=== PATIENT | male | born 1945 | race Caucasian/White ===

== ENCOUNTER → 2017-03-29 | Outpatient (CLI) | payer MEDICARE, OTHER ==
[~2017-03-29] MED LIST: BENADRYL25 M1 PO; DEXILANT30 MG PO; FLOMAX 0.40.4 MG/CAP PO; FLOMAX0.4 MG PO; PEPCID 20MG TAB20 MG PO; PREVACID 30MG30 M1 PO; PREVACID24HROTC PO; PROSCAR 5MG5 MG PO; PROSCAR PO; TUMS500 MG PO; VIMPAT100 MG PO
== END ==
LOC: COL.RAD 08:05
DX: M25.552 Pain in left hip (principal)
CPT/HCPCS: J3301; Q9967

== ENCOUNTER → 2017-11-04 | Outpatient (CLI) | payer MEDICARE, OTHER | LOC: COL.RAD 13:37 | DX: M25.552 Pain in left hip (principal) | CPT/HCPCS: J3301; Q9967 ==

== ENCOUNTER → 2018-11-15 | Outpatient (CLI) | payer MEDICARE, OTHER | LOC: COL.RAD 15:48 | DX: M85.612 Other cyst of bone, left shoulder (principal) ==

== ENCOUNTER → 2019-01-22 | Outpatient (CLI) | payer MEDICARE, OTHER | LOC: COL.RAD 08:01 | DX: M16.12 Unilateral primary osteoarthritis, left hip (principal) | CPT/HCPCS: J3301; Q9967 ==

== ENCOUNTER → 2019-04-12 | Outpatient (CLI) | payer MEDICARE, OTHER | LOC: ZCOL.LAB 14:55 | DX: M79.609 Pain in unspecified limb (principal) ==

== ENCOUNTER → 2019-08-13 | Outpatient (CLI) | payer MEDICARE, OTHER | LOC: COL.RAD 07:23 | DX: M16.12 Unilateral primary osteoarthritis, left hip (principal) | CPT/HCPCS: J3301; Q9967 ==

== ENCOUNTER → 2019-11-01 | Outpatient (CLI) | payer MEDICARE, OTHER | LOC: COL.RAD 08:43 | DX: M16.12 Unilateral primary osteoarthritis, left hip (principal) | CPT/HCPCS: J3301; Q9967 ==

== ENCOUNTER → 2020-04-28 | Outpatient (CLI) | payer MEDICARE, OTHER | LOC: COL.RAD 09:49 | DX: M16.12 Unilateral primary osteoarthritis, left hip (principal) | CPT/HCPCS: J3301; Q9967 ==

== ENCOUNTER → 2020-07-18 | Outpatient (CLI) | payer MEDICARE, OTHER | LOC: COL.LAB 10:06 | DX: Z20.828 Contact with and (suspected) exposure to other viral communicable diseases (principal) ==

== ENCOUNTER → 2021-02-09 | Outpatient (CLI) | payer MEDICARE, OTHER | LOC: COL.RAD 13:15 | DX: M25.552 Pain in left hip (principal) | CPT/HCPCS: J3301; Q9967 ==

== ENCOUNTER → 2021-05-21 | Outpatient (CLI) | payer MEDICARE, OTHER | LOC: COL.RAD 10:15 | DX: M16.12 Unilateral primary osteoarthritis, left hip (principal) | CPT/HCPCS: J3301; Q9967 ==

== ENCOUNTER 2022-02-25 07:18 | Emergency (ER) | payer MEDICARE ==
[~2022-02-25] VITALS: Ht 177.8 cm; Wt 73.6 kg
[2022-02-25 07:50] LABS: BASO % 0.5 % (0.0-2.0); EOS # 0.2 K/mm3 (0.0-0.7); EOS % 2.6 % (0.0-4.0); GRAN # 5.3 K/mm3 (1.4-6.5); HEMATOCRIT 40.5 % (42.0-52.0); HEMOGLOBIN 14.3 g/dl (13.5-18.0); LYMPH # 1.9 K/mm3 (1.2-3.4); LYMPH % 22.2 % (20.0-51.0); MEAN CELL VOLUME 91 fl (80.0-100.0); MEAN CORPUSCULAR HEMOGLOBIN 32 pg (27-31); MEAN CORPUSCULAR HGB CONC 35 g/dl (33.0-37.0); MEAN PLATELET VOLUME 10.7 fl (7.4-10.4); MONO # 0.9 K/mm3 (0.1-0.6); MONO % 10.5 % (1.7-9.3); PLATELET COUNT 226 K/mm3 (130-400); RED BLOOD COUNT 4.46 M/mm3 (4.20-5.60); REDCELL DISTRIBUTION WIDTH-CV 14.2 % (11.5-14.5)
[2022-02-25 08:02] LABS: INR 1.1 (0.8-3.0)
[2022-02-25 08:08] LABS: ALBUMIN 3.5 gm/dL (3.4-4.8); BILIRUBIN,TOTAL 0.6 mg/dL (0.2-1.2); C-REACTIVE PROTEIN 0.21 mg/dL (0.00-0.50); CALCIUM 9.4 mg/dL (8.4-10.2); CREATININE, serum 1.07 mg/dL (0.72-1.25); TOTAL PROTEIN 6.8 gm/dL (6.2-8.1)
[2022-02-25 10:14] VITALS: BP 137/79; PULSE 50; TEMP 98.2
== END 2022-02-25 10:14 | disposition short-term general hospital (02) ==
LOC: COL.ER 07:18
PROVIDERS: Family Medicine
DX: I62.00 Nontraumatic subdural hemorrhage, unspecified (principal)
CPT/HCPCS: A9575; J7120

== ENCOUNTER → 2022-03-18 | Outpatient (CLI) | payer MEDICARE ==
[~2022-03-18] MED LIST changes: +COLACE 100100 MG/CAP PO; +HEPARIN SOD5000 U/ML SQ; +KEPPRA 500MG500 MG PO; +ROXICODONE 55 MG/TAB PO; +SENOKOT S 50 MG1 TAB PO; +SINGULAIR 110 MG/TAB PO; +TYLENOL 325MG325 MG PO
== END ==
LOC: COL.RAD 11:01
DX: S06.5X9A Traumatic subdural hemorrhage with loss of consciousness of unspecified duration, initial encounter (principal)

== ENCOUNTER 2022-03-24 11:45 | Inpatient (IN) | payer MEDICARE ==
[~2022-03-24] VITALS: Ht 177.8 cm; Wt 68.2 kg
[~2022-03-24 11:45] MED LIST changes: -COLACE 100100 MG/CAP PO; -HEPARIN SOD5000 U/ML SQ; -KEPPRA 500MG500 MG PO; -ROXICODONE 55 MG/TAB PO; -SENOKOT S 50 MG1 TAB PO; -SINGULAIR 110 MG/TAB PO; -TYLENOL 325MG325 MG PO
[2022-03-24] MEDS ORDERED: HEPARIN SOD5000 U/ML SQ (13:43)
[2022-03-24] MEDS ORDERED: KEPPRA 500MG500 MG PO (13:44)
[2022-03-24] MEDS ORDERED: SENOKOT S 50 MG1 TAB PO (13:45)
[2022-03-24] MEDS ORDERED: TYLENOL 325MG325 MG PO (13:46)
[2022-03-24] MEDS ORDERED: COLACE 100100 MG/CAP PO (13:48)
[2022-03-24] MEDS ORDERED: SINGULAIR 110 MG/TAB PO (13:49)
[2022-03-24] MEDS ORDERED: ROXICODONE 55 MG/TAB PO (13:49)
--- NOTE | 2022-03-24 15:30 | NUR ---
Admission assessment completed, alert/oriented, vital signs stable, patient arrived to room 336 around this time, he was tranported her from [facility] by his / private vehilce, he denies pain or discomfort at this time, I have reviewed his meds/pharmacy/allergies and updated in the system, I have notified of his arrival to [facility], heart RRR, lungs CTA, patient has large right parietal/frontal incision that is closed with anjelica, present at bedside, they deny needs at this time , call light in reach
[2022-03-24 18:03] VITALS: BP 128/72; PULSE 57; TEMP 97.5
--- NOTE | 2022-03-24 19:12 | NUR ---
PT SITTING IN RECLINER. FLAT AFFECT. HERE. VERY SUPPORTIVE. CHAIR ALRM SET. CALL LIGHT IN REACH.
--- NOTE | 2022-03-24 19:29 | NUR ---
PT CONFUSED. PT THINKS HE IS GOING HOME WITH TERESA. ASKED FOR HELP TO THE ENTRANCE. ATTEMPTED TO REORIENT. UNABLE. PT CALM AND COOPERATIVE AT THIS TIME. CALL IGHT IN REACH. CHAIR ALARM SET.
--- NOTE | 2022-03-24 20:27 | NUR ---
PT IMPULSIVELY GETTING UP FROM RECLINER. CHAIR ALARM SOUNDING. PT ABLE TO AMB TO SURGICAL NURSING DESK ANS ESCORTED BACK TO ROOM. PT RELATES HIS IS PICKING HIM UP AT THE ENTRANCE. KNOWS HE IS AT [facility]. REVIEWED PLAN OF CARE WITH PT. CALL LIGHT INREACH. CHAIR ALARM SET.
--- NOTE | 2022-03-24 20:35 | NUR ---
PT CALLED AT HOME TO ASK WHEN SHE IS COMING TONIGHT. SHE REVIEWED PLAN OF CARE WITH HIM AND PT RELATED OK. ASSISTED PT TO SINK TO BRUSH TEETH. AND GET READY FOR BED.
--- NOTE | 2022-03-24 21:01 | NUR ---
PT RESTING IN BED. BED ALARM SET. CALL IGHT IN REACH. DENIES NEEDS AT THIS TIME.
--- NOTE | 2022-03-25 00:24 | NUR ---
PT RESTING QUIETLY NOW.
--- NOTE | 2022-03-25 02:17 | NUR ---
PT HAS NOT USED CALL LIGHT TONIGHT BEFORE GETTING UP TO BR. CALM AND COOPERATIVE.
[2022-03-25 05:41] VITALS: BP 109/51; PULSE 100; TEMP 98.7
--- NOTE | 2022-03-25 06:13 | NUR ---
PT CONTINUES SLEEPING AT THIS TIME.
--- NOTE | 2022-03-25 10:25 | NUR ---
Initial visit attempt; Patient resting, Telephone Instrument Supervisor left card letting patient know of the availability of Spiritual Care at [facility].
--- NOTE | 2022-03-25 13:57 | NUR ---
HEATH and SW student met with the patient to complete intake, as the patient is new to [facility]. The patient lives in [place] with his , Lucila (ph#[phone]). He reports independence with ADLs before hospitalization and has a walking stick. The patient's PCP is Dr. Didier Dixon and he receives his medications from [facility]. The patient's DPOA-HC is in EMR and it designates his . The alternate is his son, Cordell (ph#[phone]). Cordell lives in [place] and is a physician with radiology at [employer]. The patient states that therapy has gone well so far. He had no questions or concerns for SW at this time.
--- NOTE | 2022-03-25 14:30 | NUR ---
PT RESTING QUIETLY IN BED WITH HIS EYES CLOSED. BED ALARM IS ON. CALL LIGHT WITHIN REACH. PT'S SPOUSE HAS BEEN HERE TO VISIT TODAY. PT HAS BEEN CONFUSED THROUGHOUT DAY, STATES THAT HE DOES NOT KNOW WHERE HE IS WHEN ASKED. DOES NOT USE CALL LIGHT APPROPRIATELY ET IS IMPULSIVE, LEAVES BED ON HIS OWN. PT HAD STATED THIS MORNING THAT HE HAD A MILD HEADACHE WHERE INCISION IS ON HIS HEAD, TYLENOL ADMINISTERED.
--- NOTE | 2022-03-25 15:09 | NUR ---
PT ARRIVES BACK TO ROOM AFTER WORKING WITH PHYSICAL THERAPY DOWNSTAIRS.
[2022-03-25 17:52] VITALS: BP 121/57; PULSE 63; TEMP 98
--- NOTE | 2022-03-25 19:54 | NUR ---
PT MORE ALERT AND ORIENTED TONIGHT. AT BEDSIDE. PT DENEIS PAIN. STILL FORGETS TO USE CALL LIGHT. HAS SL UNSTEADY GAIT WITH AMB TO BR. PT DENIES NEEDS AT THIS TIME. CALL LIGHT IN REACH. BED ALARM SET.
--- NOTE | 2022-03-26 05:23 | NUR ---
PT HAS HAD AN UNEVENTFUL NIGHT. FORGOT TO USE CALL LIGHT BEFORE GETTING UP TO BR X3. NO FURTHER C/O MENJIVAR.
[2022-03-26 05:30] VITALS: BP 108/49; PULSE 51; TEMP 98.1
[2022-03-26 07:33] LABS: CALCIUM 8.9 mg/dL (8.4-10.2); CREATININE, serum 0.89 mg/dL (0.72-1.25); POTASSIUM 4.4 mmol/L (3.5-4.5)
--- NOTE | 2022-03-26 08:00 | NUR ---
Patient set off the bed alarm and was already in the bathroom when the nurse came in. Nurse instructed the patient to call and wait for nursing staff for assistance. Patient A&Ox4. VSS. Denies pain and discomfort. Ankit to head CDI. Call light within reach. Bed alarm on
[2022-03-26 17:17] VITALS: BP 117/66; PULSE 63; TEMP 98.3
--- NOTE | 2022-03-26 17:20 | NUR ---
Patient sitting up in bed eating dinner, at the bedside. Patient A&Ox3 with intermittent confusion. Nursing staff reorienting as needed. Patient impulsive and has set off bed alarm to walk to the bathroom independently. Nursing staff instructing the patient to call for assistance with ambulation for patient safety. Call light within reach. Bed alarm on
[2022-03-27 06:04] VITALS: BP 116/64; PULSE 56; TEMP 98
--- NOTE | 2022-03-27 06:08 | NUR ---
no pain reported this shift, colace given @ HS for reported constipation. alert and oriented, called for assistance most of the time, but did set bed alarm off x2 getting up to use restroom.
--- NOTE | 2022-03-27 06:50 | NUR ---
Shift report received from senior it project manager RN. Pt. sleeping in left side lying position in bed. Call light is within his reach
--- NOTE | 2022-03-27 15:16 | NUR ---
Pt. resting in bed. Has completed his therapy for the day. HOB elevated approx 30 degrees. He denies pain or discomfort. Denies further needs. Bed alarm is on. Call light is within his reach
[2022-03-27 17:06] VITALS: BP 137/80; PULSE 59; TEMP 97.3
--- NOTE | 2022-03-27 19:08 | NUR ---
RECEIVED CHANGE OF SHIFT REPORT FROM DAY SHIFT RN. PATIENT HAS BEEN UP IN ROOM DESPITE EXIT ALARMS IN USE WHEN IN BED OR UP IN CHAIR. PATIENT REMINDED OF SAFTEY PRECAUTIONS AND THAT PT WOULD NEED TO EVALUATE HIM.
--- NOTE | 2022-03-27 20:40 | NUR ---
REQUESTED AND GIVEN TYLENOL FOR BACK TO HEAD/NECK DISCOMFORT AT THIS TIME.
--- NOTE | 2022-03-27 21:47 | NUR ---
PATIENT UP, SETTING OFF EXIT BED ALARM, PATIENT HAD BEEN REMINDED TO CALL STAFF WHEN OUT OF BED. PATIENT STATED HE NEEDED TO GET HIS OWN TUMS MEDS, HAS BEEN TAKING THEM PER SELF. STATES HE WANTS TO TAKE HIS OWN TUMS FROM HOME. INFORMED HOSPITALIST OF PATIENT'S REQUEST TO USE OWN HOME TUMS, OKAY GIVEN FOR PATIENT TO KEEP OWN TUMS AT BEDSIDE FOR USE PRN.
[2022-03-28 05:57] VITALS: BP 113/58; PULSE 53; TEMP 97.8
--- NOTE | 2022-03-28 07:12 | NUR ---
Shift report received from third shift lieutenant RN. Pt. resting in right side lying position. Call light is within his reach. Bed alarm is on
--- NOTE | 2022-03-28 07:14 | NUR ---
Change of shift report given to day shift RNRodney.
--- NOTE | 2022-03-28 08:56 | NUR ---
Pt. resting in bed with eyes closed. Has completed his breakfast. Sutures and anjelica to right scalp incision are CDI and SOFTWARE DEVELOPMENT ENGINEER. He denies pain or discomfort. Bed alarm is on. Call light is within his reach
--- NOTE | 2022-03-28 14:21 | NUR ---
Pt. requesting help to "go for a walk". Pt. ambulated with gait belt around Surgical/IPR unit with CGA. attended the walk.
[2022-03-28 17:13] VITALS: BP 112/61; PULSE 54; TEMP 98
--- NOTE | 2022-03-28 19:38 | NUR ---
RECEIVED CHANGE OF SHIFT REPORT FROM DAY SHIFT RN. PATIENT RESTING IN BED WITH EXIT ALARM ON AND CALL LIGHT WITHIN REACH.
--- NOTE | 2022-03-29 01:05 | NUR ---
PATIENT CONTINUES TO BE UP IN THE NIGHT, SETTING OFF BED EXIT ALARM. CONTINUE TO REMIND PATIENT TO CALL STAFF BEFORE GETTING OUT OF BED, PATIENT VERBALIZES UNDERSTANDING. NO OTHER NEEDS OR CONCERNS REPORTED.
[2022-03-29 05:34] VITALS: BP 114/63; PULSE 60; TEMP 97.8
--- NOTE | 2022-03-29 07:01 | NUR ---
CHANGE OF SHIFT REPORT GIVEN TO DAY SHIFT RNMAYCO.
[2022-03-29 07:29] LABS: CALCIUM 9.1 mg/dL (8.4-10.2); CREATININE, serum 1.01 mg/dL (0.72-1.25); MAGNESIUM 1.9 mg/dL (1.6-2.6); POTASSIUM 4.5 mmol/L (3.5-4.5)
--- NOTE | 2022-03-29 09:14 | NUR ---
PT OUT WITH THERAPY THIS AM. AMBULATING WITH STEADY GAIT. PT REPORTS USING STAIR STEP FOR 20 MIN THIS AM. AM MEDS GIVEN ORDERED. SURGICAL WOUND TO RIGHT SCALP CDI, CLOSED WITH CHLOÉ. PT EATING AND DRINKING APPROPRIATE. PT DENIES NEEDS.
--- NOTE | 2022-03-29 10:11 | NUR ---
THERAPY HAS MADE PT INDEPENDENT IN ROOM.
--- NOTE | 2022-03-29 14:27 | NUR ---
Admission QIM scores were reviewed by the team. Code of 4 chosen for oral hygiene was determined by team discussion to be the most usual performance for this patient during the assessment period. Code of 4 chosen for toilet hygiene was determined by team discussion to be the most usual performance for this patient during the assessment period. Code of 4 chosen for toileting transfers was determined by team discussion to be the most usual performance for this patient during the assessment period. Code of 4 chosen for rolling left to right was determined by team discussion to be the most usual performance before interventions for this patient during the assessment period. Code of 4 chosen for sit to lying was determined by team discussion to be the most usual performance before interventions for this patient during the assessment period. Code of 4 chosen for lying to sitting on side of bed was determined by team discussion to be the most usual performance for this patient during the assessment period. Code of 3 for sit to stand was determined by team discussion to be the most usual performance for this patient during the assessment period.--Risa Avendano, PD
--- NOTE | 2022-03-29 15:47 | NUR ---
SW checked in with patient in the morning. No needs adressed. IPR director updated me at the 1400 physician meeting that the patient will dc tomorrow and will need PT/OT/St established. Attempt made to meet with patient who was napping. Will discuss in the morning.
[2022-03-29 17:25] VITALS: BP 116/58; PULSE 56; TEMP 98.2
--- NOTE | 2022-03-29 18:58 | NUR ---
RECEIVED CHANGE OF SHIFT REPORT FROM DAY SHIFT RN.
--- NOTE | 2022-03-29 19:17 | NUR ---
DENIES ANY NEEDS AT THIS TIME. RESTING IN BED. PATIENT UP IN ROOM INDEPENDENTLY. CALL LIGHT WITHIN REACH. REQUESTED AND GIVEN TYLENOL FOR INCISIONAL R SCALP PAIN.
[2022-03-30 06:04] VITALS: BP 124/61; PULSE 64; TEMP 97.5
--- NOTE | 2022-03-30 07:25 | NUR ---
CHANGE OF SHIFT REPORT GIVEN TO DAY SHIFT RNLIZ.
--- NOTE | 2022-03-30 08:50 | NUR ---
PT SITTING UP IN BED ON ROOM AIR EATING BREAKFAST. PT IS COMPLAINING OF A HEADACHE THIS MORNING AND REQUESTING TYLENOL. MEDICATION WAS GIVEN PER REQUEST. PT STATES NO OTHER NEEDS OR COMPLAINTS AT THIS TIME. CHLOÉ AND SUTURES IN RIGHT SCALP ARE DRY AND INTACT. PT STATES HE IS READY TO GO HOME TODAY AND "EXCITED TO GET OUT OF HERE." CALL LIGHT IS WITHIN REACH.
[2022-03-30] MEDS ORDERED: TYLENOL 325MG325 MG PO (09:58)
[2022-03-30] MEDS ORDERED: KEPPRA 500MG500 MG PO (10:02)
--- NOTE | 2022-03-30 12:48 | NUR ---
plant worker met with patient to discuss that the recommendations from the team are for him to discharge with PT,OT and ST. Patient verbalizes " i don't really feel like i need speech". Patient went on to state that he has already started physical therapy at [facility] on [address] and would like to continue his physical therapt there. Notified IPR director and physician. Physician states he is needs to round on the patient and that he will speak with the patient. [facility]. Faxed clinical information and orders to [phone]. They will call the patient to schedule an appointment time. Phone call made to [facility] on [facility] to notify them that the patient will need OT and speech services. Patients clinical information and orders faxed over to them. They will call the patients for scheduling. Brian HADIER notified of the above. Discharge plan: Home with OP PT at [facility] and OT/ST through [facility]
== END 2022-03-30 12:30 | disposition home or self-care (01) | DRG 949 ==
PROVIDERS: Internal Medicine; ADMIT Physical Medicine & Rehabilitation Sports Medicine
DX: Z48.811 Encounter for surgical aftercare following surgery on the nervous system (principal); E87.0 Hyperosmolality and hypernatremia; R26.89 Other abnormalities of gait and mobility; N40.1 Benign prostatic hyperplasia with lower urinary tract symptoms; R33.8 Other retention of urine; K21.9 Gastro-esophageal reflux disease without esophagitis; J30.1 Allergic rhinitis due to pollen; D64.89 Other specified anemias; Z90.5 Acquired absence of kidney; Z73.6 Limitation of activities due to disability; Z79.891 Long term (current) use of opiate analgesic; Z79.899 Other long term (current) drug therapy; K59.00 Constipation, unspecified; R41.89 Other symptoms and signs involving cognitive functions and awareness
CPT/HCPCS: 99222; 99231-AI; 99232-AI; A9284; J1644

== ENCOUNTER 2022-04-12 15:15 | Outpatient (RCR) | payer MEDICARE ==
[~2022-04-12 15:15] MED LIST changes: +COLACE 100100 MG/CAP PO; +HEPARIN SOD5000 U/ML SQ; +KEPPRA 500MG500 MG PO; +ROXICODONE 55 MG/TAB PO; +SENOKOT S 50 MG1 TAB PO; +SINGULAIR 110 MG/TAB PO; +TYLENOL 325MG325 MG PO
== END 2022-04-20 | disposition home or self-care (01) ==
LOC: WSST
DX: I69.198 Other sequelae of nontraumatic intracerebral hemorrhage (principal); R48.9 Unspecified symbolic dysfunctions; R41.3 Other amnesia

== ENCOUNTER 2022-04-20 13:58 | Emergency (ER) | payer MEDICARE ==
[~2022-04-20] VITALS: Ht 177.8 cm; Wt 69.1 kg
[2022-04-20 14:11] VITALS: TEMP 98
[2022-04-20 14:28] LABS: BASO # 0.1 K/mm3 (0.0-0.2); BASO % 0.5 % (0.0-2.0); EOS # 0.1 K/mm3 (0.0-0.7); GRAN # 7.3 K/mm3 (1.4-6.5); GRAN % 73.6 % (42.2-75.2); HEMATOCRIT 41.7 % (42.0-52.0); HEMOGLOBIN 14.1 g/dl (13.5-18.0); LYMPH # 1.3 K/mm3 (1.2-3.4); MEAN CELL VOLUME 93 fl (80.0-100.0); MEAN CORPUSCULAR HEMOGLOBIN 32 pg (27-31); MEAN CORPUSCULAR HGB CONC 34 g/dl (33.0-37.0); MEAN PLATELET VOLUME 10.9 fl (7.4-10.4); MONO # 1.2 K/mm3 (0.1-0.6); MONO % 11.6 % (1.7-9.3); PLATELET COUNT 181 K/mm3 (130-400); RED BLOOD COUNT 4.48 M/mm3 (4.20-5.60); REDCELL DISTRIBUTION WIDTH-CV 14.3 % (11.5-14.5)
[2022-04-20 14:44] LABS: ALANINE AMINOTRANSFERASE 13 U/L (0-55); ALBUMIN 3.6 gm/dL (3.4-4.8); ALKALINE PHOSPHATASE 105 U/L (40-150); ANION GAP 12 mmol/L (7-16); AST,SGOT 12 U/L (5-34); BILIRUBIN,TOTAL 0.4 mg/dL (0.2-1.2); BLOOD UREA NITROGEN 16 mg/dL (8-26); CALCIUM 9.4 mg/dL (8.4-10.2); CARBON DIOXIDE 23 mmol/L (23-31); CHLORIDE 103 mmol/L (98-107); CREATININE, serum 1.21 mg/dL (0.72-1.25); GLUCOSE 110 mg/dL (70-99); POTASSIUM 4.5 mmol/L (3.5-4.5); SODIUM 138 mmol/L (136-145); TOTAL PROTEIN 7.5 gm/dL (6.2-8.1)
[2022-04-20 15:09] LABS: TROPONIN-I < 0.010 ng/mL (0.00-0.033)
[2022-04-20 16:01] LABS: COLLECTION METHOD CLEAN CATCH
[2022-04-20 16:09] LABS: MUCOUS Present (NOT PRESENT); PH 6 (5-8); SQUAMOUS EPITHELIAL 0-2 /hpf (0-10); URINE APPEARANCE Clear (CLEAR/HAZY); URINE BACTERIA None Seen /hpf (NONE SEEN); URINE BILIRUBIN Negative (NEGATIVE); URINE BLOOD 1+ (NEGATIVE); URINE COLOR Yellow (YELLOW); URINE GLUCOSE Negative (NEGATIVE); URINE KETONE Trace (NEGATIVE); URINE LEUKOCYTE ESTERASE Negative (NEGATIVE); URINE NITRATE Negative (NEGATIVE); URINE PROTEIN(semi-quant) Negative (NEGATIVE); URINE UROBILINOGEN Negative (NEGATIVE)
[2022-04-20 18:20] VITALS: BP 102/74; PULSE 88
== END 2022-04-20 18:21 | disposition short-term general hospital (02) ==
LOC: COL.ER 13:58
PROVIDERS: Emergency Medicine
DX: R41.82 Altered mental status, unspecified (principal); Z20.822 Contact with and (suspected) exposure to COVID-19
CPT/HCPCS: J2060

== ENCOUNTER 2022-04-21 09:26 | Outpatient (RCR) | payer MEDICARE ==
[2022-04-28] MEDS ORDERED: ROCEPHIN 2GM VIAL21 IJ (16:08)
[2022-04-28] MEDS ORDERED: DEPAKOTE ER 50500 MG PO (16:09)
[2022-04-28] MEDS ORDERED: TYLENOL 325MG325 MG PO (16:09)
[2022-04-28] MEDS ORDERED: ROXICODONE 55 MG/TAB PO (16:10)
[2022-04-28] MEDS ORDERED: ROBAXIN 75750 MG/TAB PO (16:11)
[2022-04-28] MEDS ORDERED: DULCOLAX STOOL100 MG PO (16:12)
[2022-04-28] MEDS ORDERED: TUMS500 MG PO (16:12)
[2022-04-28] MEDS ORDERED: PEPCID AC 10MG10 MG PO (16:14)
[2022-04-28] MEDS ORDERED: FLONASEALLERGY INH (16:16)
[2022-04-28] MEDS ORDERED: HEPARIN SOD5000 U/ML IJ (16:17)
[2022-04-28] MEDS ORDERED: HEPARIN SOD5000 U/ML SQ (16:18)
[2022-04-28] MEDS ORDERED: NAPHAZOLINE OP (16:19)
[2022-04-28] MEDS ORDERED: PHENIRAMINE OP (16:19)
[2022-04-28] MEDS ORDERED: SENOKOT S 50 MG1 TAB PO (16:19)
[2022-04-28] MEDS ORDERED: FLOMAX 0.40.4 MG/CAP PO (16:20)
[2022-05-04] MEDS ORDERED: ROCEPHIN 2GM VIAL21 IV (10:49)
== END 2022-05-20 ==
LOC: WSST
DX: Z79.899 Other long term (current) drug therapy (principal)

== ENCOUNTER 2022-04-28 14:32 | Inpatient (IN) | payer MEDICARE ==
[~2022-04-28] VITALS: Ht 177.8 cm; Wt 71.5 kg
[2022-04-28] MEDS ORDERED: ROCEPHIN 2GM VIAL21 IJ (16:08)
[2022-04-28] MEDS ORDERED: DEPAKOTE ER 50500 MG PO (16:09)
[2022-04-28] MEDS ORDERED: TYLENOL 325MG325 MG PO (16:09)
[2022-04-28] MEDS ORDERED: ROXICODONE 55 MG/TAB PO (16:10)
[2022-04-28] MEDS ORDERED: ROBAXIN 75750 MG/TAB PO (16:11)
[2022-04-28] MEDS ORDERED: DULCOLAX STOOL100 MG PO (16:12)
[2022-04-28] MEDS ORDERED: TUMS500 MG PO (16:12)
[2022-04-28] MEDS ORDERED: PEPCID AC 10MG10 MG PO (16:14)
[2022-04-28] MEDS ORDERED: FLONASEALLERGY INH (16:16)
[2022-04-28] MEDS ORDERED: HEPARIN SOD5000 U/ML IJ (16:17)
[2022-04-28] MEDS ORDERED: HEPARIN SOD5000 U/ML SQ (16:18)
[2022-04-28] MEDS ORDERED: NAPHAZOLINE OP (16:19)
[2022-04-28] MEDS ORDERED: SENOKOT S 50 MG1 TAB PO (16:19)
[2022-04-28] MEDS ORDERED: PHENIRAMINE OP (16:19)
[2022-04-28] MEDS ORDERED: FLOMAX 0.40.4 MG/CAP PO (16:20)
--- NOTE | 2022-04-28 18:27 | NUR ---
Pt. arrived to unit via wheelchair accompanied by and son. Orientation provided to room/unit. Pt. denies pain or discomfort. Pt. is currently eating dinner. Call light is within his reach
[2022-04-28 19:55] VITALS: BP 115/60; PULSE 61; TEMP 98.1
--- NOTE | 2022-04-28 20:18 | NUR ---
Patient is resting in bed, alert and oriented x 4, VSS. Complains of feeling cold, blankets provided and temp of bedroom increased. Assessment intake completed.
[2022-04-29 05:47] VITALS: BP 99/52; PULSE 66; TEMP 97.9
--- NOTE | 2022-04-29 06:00 | NUR ---
Patient able to ambulate without assistance. Bed alarm on but he ignores it and just go to the restroom without calling for help. No other issues along the night. Report will be given to day RN.
--- NOTE | 2022-04-29 13:27 | NUR ---
Initial visit; Nice visit with classmate; Dr. Dyson. Patient spoke of his family and what they are doing and where and then spoke of our mutual friends and classmates. Patient states that he sees some improvement in his health and was receptive to Shipwright Supervisor keeping him in her prayers.
--- NOTE | 2022-04-29 14:47 | NUR ---
patient has appt with dr peter (infectious disease) on 05/28 at 9:30.
--- NOTE | 2022-04-29 15:49 | NUR ---
Appeals Examiner met with patient to complete initial intake as he is new to [facility]. Patient lives in [place] with his , Lucila Patel" (ph#[phone]) and sees Dr. Dixon for primary care. Patient obtains medications from [facility] with no difficulties. Patient does not normally use any DME but has a walking stick that he takes with him when he does on walks. Patient reports he is normally independent with ADLS. Patient has Advance Directives which designate his Sylvia and his four sons: Pillo, Tino, Augustin, and George. SW will continue to follow for discharge needs.
[2022-04-29 17:10] VITALS: BP 128/62; PULSE 54; TEMP 98.1
--- NOTE | 2022-04-29 21:00 | NUR ---
PT RESTING IN BED. TEXTING WITH GRANDSON. DENIES PAIN. A&OX4. NO DISTRESS. CALL LIGHT IN REACH. BED ALARM SET.
[2022-04-30 05:10] VITALS: BP 134/72; PULSE 54; TEMP 98.3
--- NOTE | 2022-04-30 05:35 | NUR ---
PT SLEEPING. NO DISTRESS. QUIET UNEVENTFUL NIGHT.
[2022-04-30 06:29] LABS: BASO # 0.1 K/mm3 (0.0-0.2); BASO % 0.9 % (0.0-2.0); EOS # 0.3 K/mm3 (0.0-0.7); EOS % 3.9 % (0.0-4.0); GRAN # 3.5 K/mm3 (1.4-6.5); GRAN % 51.2 % (42.2-75.2); LYMPH # 2.1 K/mm3 (1.2-3.4); MEAN CELL VOLUME 92 fl (80.0-100.0); MEAN CORPUSCULAR HEMOGLOBIN 32 pg (27-31); MEAN CORPUSCULAR HGB CONC 34 g/dl (33.0-37.0); MEAN PLATELET VOLUME 10.8 fl (7.4-10.4); MONO # 0.9 K/mm3 (0.1-0.6); MONO % 12.8 % (1.7-9.3); PLATELET COUNT 358 K/mm3 (130-400); RED BLOOD COUNT 3.48 M/mm3 (4.20-5.60); REDCELL DISTRIBUTION WIDTH-CV 14.5 % (11.5-14.5)
[2022-04-30 06:58] LABS: ALBUMIN 2.7 gm/dL (3.4-4.8); BILIRUBIN,TOTAL 0.2 mg/dL (0.2-1.2); CALCIUM 8.9 mg/dL (8.4-10.2); CREATININE, serum 0.86 mg/dL (0.72-1.25); TOTAL PROTEIN 5.9 gm/dL (6.2-8.1)
--- NOTE | 2022-04-30 15:04 | NUR ---
The IPR Team would like to set up a patient/family meeting for next week. HEATH contacted the patient's , Sylvia, to schedule the meeting. The patient/family meeting was scheduled for next Tuesday, 05/04, at 1000. Sylvia plans to be here in person for the meeting. HEATH notified IPR Director.
[2022-04-30 17:22] VITALS: BP 131/72; PULSE 52; TEMP 97.8
--- NOTE | 2022-04-30 20:28 | NUR ---
ASSISTED PT TO BR. STEADY BUT WEAK GAIT. TO SINK BRUSHED TEETH HIMSELF. RETURNED TO BED. LIFTED LEGS INTO BED. CALL LIGHT IN REACH. BED ALARM SET.
--- NOTE | 2022-05-01 04:38 | NUR ---
PT IMPULSIVE TONIGHT. GETTING UP TO BR WITHOUT USING CALL LIGHT.
[2022-05-01 05:53] VITALS: BP 131/63; PULSE 52; TEMP 98.7
--- NOTE | 2022-05-01 10:53 | NUR ---
Follow-up visit attempt; Patient out of room, Insecticide Supervisor left card offering God's blessings and notice that Insecticide Supervisor had attempted to see him again today and wish him well.
[2022-05-01 17:29] VITALS: BP 131/63; PULSE 59; TEMP 98
--- NOTE | 2022-05-01 19:38 | NUR ---
PT ASSISTED TO WC TO GO TO [address] DURING TORNADO WARNING. NO DISTRESS.
--- NOTE | 2022-05-02 00:57 | NUR ---
PT IMPULSIVE SEVERAL TIMES TONIGHT. ENC PT TO USE CALL LIGHT.
[2022-05-02 05:18] VITALS: BP 111/55; PULSE 51; TEMP 97.8
--- NOTE | 2022-05-02 08:30 | NUR ---
Assessment complete. Pt resting in bed. A&Ox4. Follows commands. Incision to right side of head CDI with anjelica in place. Pt denies pain or other concerns at this time. Call light in reach and bed alarm on.
[2022-05-02 18:00] VITALS: BP 141/46; PULSE 58; TEMP 98.6
--- NOTE | 2022-05-02 18:15 | NUR ---
Pt had good day. Up walking in halls several times today with . No c/o pain. Denies needs.
--- NOTE | 2022-05-02 19:04 | NUR ---
PT RESTING IN BED. NO NEEDS AT THIS TIME/ CALL LIGHT IN REACH. BED ALARM SET.
--- NOTE | 2022-05-02 20:00 | NUR ---
PT RESTING IN BED. NO COMPLAINTS. GOOD CONVERSATION ABOUT WORKING AT [employer]. HAS SL SLOW THOUGHT PROCESS. REMINDED TO USE CALL LIGHT TONIGHT WHEN NEEDING UP. PT AGREED. CALL LIGHT IN REACH. BED ALARM SET.
[2022-05-03 06:39] VITALS: BP 111/57; PULSE 56; TEMP 97.8
--- NOTE | 2022-05-03 08:37 | NUR ---
ASSESSMENT COMPLETED. THE PATIENT DENIES ANY PAIN AT THIS TIME. THERE IS A LARGE HEALING INSICION ALONG THE RIGHT SIDE OF THE HEAD. CHLOÉ INTACT, INCISION EDGES ARE WELL APPROXIMATED, THERE IS NO REDNESS OR DRAINAGE FROM THE INCISION. MEDICATIONS ADMINISTERED PER MAR. NO PRN MEDICATIONS NEEDED AT THIS TIME. NO OTHER CONCERNS. SPEECH THERAPY AT BEDSIDE.
--- NOTE | 2022-05-03 08:48 | NUR ---
PER HOSPITAL PROTOCOL, THE PICC PROTOCOL INTERVENTIONS WERE ADDED. THE LAST DRESSING CHANGED ON THE PATIENT'S PICC LINE WAS 04/26/22. CAPS WERE CHANGED AT THIS TIME. NOTIFIED AIVS OF THE PICC LINE. NO OTHER CONCERNS. AT THIS TIME.
--- NOTE | 2022-05-03 10:57 | NUR ---
ARM CIRCUMFERENCE PER VITALY BARNES AIBAN IS 28CM.
--- NOTE | 2022-05-03 11:00 | NUR ---
Patient admitted to [facility] with a PICC present. AIV not notified. Dressing dated 04/24/2022. Sterile dressing change performed. Insertion site cleansed with ChloraPrep x1, chlorhexidine impregnated disc applied, skin prep, StatLock, and Tegaderm applied. Previous CHG disk was wet. No drainage noted. No signs or symptoms of IV complications noted.
--- NOTE | 2022-05-03 13:29 | NUR ---
Admission QIM scores were reviewed by the team. Code of 5 chosen for toilet hygiene was determined by team discussion to be the most usual performance for this patient during the assessment period. Code of 4 chosen for putting on/taking off footwear was determined by team discussion to be the most usual performance for this patient during the assessment period.--Risa Avendano, PD
[2022-05-03 18:00] VITALS: BP 114/63; PULSE 64; TEMP 98.2
--- NOTE | 2022-05-03 21:31 | NUR ---
PT LAYING IN BED COMPLAINING OF ACID REFLEX. MEDICATED. PT DENIES ANY PAIN AT THIS TIME.
[2022-05-04 05:14] VITALS: BP 125/72; PULSE 62; TEMP 97.4
--- NOTE | 2022-05-04 07:10 | NUR ---
Shift report received from shift production supervisor RN Alex. Pt. resting in bed. Call light is within his reach
[2022-05-04] MEDS ORDERED: ROCEPHIN 2GM VIAL21 IV (10:49)
--- NOTE | 2022-05-04 11:15 | NUR ---
HEATH attended the patient/family meeting. The patient's and son were at bedside. Also present was IPR Director, Dr. Lawson, PT, OT, and ST. IPR Director started by explaining the purpose of the meeting. Dr. Lawson then provided the patient and his family with a medical update. Dr. Lawson informed the family how the patient is going to need IV antibiotics, twice a day until 06/02. The patient's , Sylvia, would like to do the IV antibiotics at home. PT/OT/ST then discussed the patient's progress and how the team has set a discharge date for tomorrow, 05/05. The team recommends to continue outpatient PT/ST. Sylvia states that the patient was receiving outpatient ST at [facility] and PT at [facility], prior to being admitted to the hospital. Sylvia would like to resume PT/ST at those facilities. The team answered all questions HEATH then addressed the need for home health for the IV antibiotics at home and provided the Medicare.gov list of home health agencies that serve [place] to Sylvia. Sylvia chose [facility]. She is also agreeable to use [facility] for the IV antibiotics. HEATH presented and read the IM form outloud to Sylvia. Sylvia verbalized understanding and signed the form. She declined a copy. HEATH contacted and faxed a referral to Herb at [facility]. Awaiting screen. HEATH contacted and faxed the patient's information and script to Iman at [facility]. Awaiting approval for IV antibiotics and Iman will check benefits. HEATH secured an ST appointment at [facility] on 05/11 at 1015 and a PT appointment on 05/07 at 1415 at [facility]. HEATH will need to fax orders to [facility] and [facility]. HEATH informed the air conditioning unit assembler of the appointments.
--- NOTE | 2022-05-04 14:04 | NUR ---
Iman, at [facility], states that they can service the patient and that he would have a co-pay of $56 a week for the medication and $5-$15 a day for supplies. Iman states that she will be calling the patient's to set up a time to provide education and she will review the [id number] costs with her. HEATH contacted and updated the patient's , Sylvia, on the above. Sylvia is agreeable to pay the [id number] costs and states that she plans on meeting Iman at 1700 today for education.
[2022-05-04 17:00] VITALS: BP 117/62; PULSE 59; TEMP 97.8
--- NOTE | 2022-05-04 17:40 | NUR ---
Pt sitting up in bed visiting with his . He denies pain or discomfort. He denies further needs. Mod I in room. Call light is within his reach
--- NOTE | 2022-05-05 00:41 | NUR ---
Pt ambulating with family members upon shift change. Assessment and medication administration completed without difficulty. Pt is A&O and pleasant. Pt had complaints of heartburn throughout the shift, PRN medication given per EMAR for relief. Pt has no other complaints of pain, all other needs met at this time. Call light within reach.
[2022-05-05 05:59] VITALS: BP 122/69; PULSE 52; TEMP 97.7
--- NOTE | 2022-05-05 07:05 | NUR ---
Shift report received from hotel night auditor RN. Pt. resting supine in bed. Call light is within his reach
--- NOTE | 2022-05-05 10:46 | NUR ---
HEATH contacted Iman at [facility] to confirm delivery. Iman reports that the patient's antibiotics will be delivered to his home today, in time for his evening dose. She states that she arranged with [facility] for them to come out tonight to assist with his first dose at home. The patient is to discharge back home with his today, 05/05, with [facility], outpatient ST at [facility], and outpatient PT at [facility]. HEATH notified and faxed orders to Herb at [facility]. HEATH faxed orders to [facility] and [facility]. No additional needs at this time.
[2022-05-05 10:54] LABS: BASO # 0.1 K/mm3 (0.0-0.2); EOS # 0.2 K/mm3 (0.0-0.7); EOS % 2.6 % (0.0-4.0); GRAN % 54.8 % (42.2-75.2); HEMATOCRIT 37.1 % (42.0-52.0); HEMOGLOBIN 12.6 g/dl (13.5-18.0); LYMPH # 1.7 K/mm3 (1.2-3.4); LYMPH % 23.8 % (20.0-51.0); MEAN CELL VOLUME 92 fl (80.0-100.0); MEAN CORPUSCULAR HEMOGLOBIN 31 pg (27-31); MEAN CORPUSCULAR HGB CONC 34 g/dl (33.0-37.0); MEAN PLATELET VOLUME 10.5 fl (7.4-10.4); MONO # 1.2 K/mm3 (0.1-0.6); MONO % 16.4 % (1.7-9.3); PLATELET COUNT 374 K/mm3 (130-400); RED BLOOD COUNT 4.02 M/mm3 (4.20-5.60); REDCELL DISTRIBUTION WIDTH-CV 14.8 % (11.5-14.5)
[2022-05-05 11:09] LABS: BILIRUBIN,TOTAL 0.2 mg/dL (0.2-1.2); CALCIUM 9.4 mg/dL (8.4-10.2); CREATININE, serum 0.93 mg/dL (0.72-1.25); POTASSIUM 4.5 mmol/L (3.5-4.5); TOTAL PROTEIN 6.8 gm/dL (6.2-8.1)
--- NOTE | 2022-05-05 11:55 | NUR ---
Pt Health Summary, Discharge Summary, and Home Meds reviewed with pt and his . Follow-up appointments discussed. Pt. escorted by wheelchair to vehicle and seatbelted for ride home
== END 2022-05-05 11:41 | disposition home health service (06) | DRG 66 ==
PROVIDERS: ADMIT Physical Medicine & Rehabilitation Sports Medicine
DX: I62.00 Nontraumatic subdural hemorrhage, unspecified (principal); R26.89 Other abnormalities of gait and mobility; J30.1 Allergic rhinitis due to pollen; L70.0 Acne vulgaris; N40.0 Benign prostatic hyperplasia without lower urinary tract symptoms; K21.9 Gastro-esophageal reflux disease without esophagitis; K59.00 Constipation, unspecified; D64.89 Other specified anemias; R41.89 Other symptoms and signs involving cognitive functions and awareness; Z73.6 Limitation of activities due to disability; T81.49XD Infection following a procedure, other surgical site, subsequent encounter; Z90.5 Acquired absence of kidney; Y92.234 Operating room of hospital as the place of occurrence of the external cause; Z79.899 Other long term (current) drug therapy; Z79.2 Long term (current) use of antibiotics; Z79.891 Long term (current) use of opiate analgesic
CPT/HCPCS: 99222; 99231-AI; J0696; J1644

== ENCOUNTER → 2022-07-21 | Outpatient (RCR) | payer MEDICARE ==
[~2022-07-21] MED LIST changes: +DEPAKOTE ER 50500 MG PO; +DULCOLAX STOOL100 MG PO; +FLONASEALLERGY INH; +HEPARIN SOD5000 U/ML IJ; +NAPHAZOLINE OP; +PEPCID AC 10MG10 MG PO; +PHENIRAMINE OP; +ROBAXIN 75750 MG/TAB PO; +ROCEPHIN 2GM VIAL21 IJ; +ROCEPHIN 2GM VIAL21 IV
== END | disposition home or self-care (01) ==
LOC: WSST
DX: S06.5X9S Traumatic subdural hemorrhage with loss of consciousness of unspecified duration, sequela (principal)

== ENCOUNTER → 2023-11-02 | Outpatient (CLI) | payer MEDICARE ==
[~2023-11-02] MED LIST changes: +CELEXA10 MG PO; +CIALIS5 MG PO
== END ==
LOC: COL.RAD 13:43
DX: K21.9 Gastro-esophageal reflux disease without esophagitis (principal); K44.9 Diaphragmatic hernia without obstruction or gangrene